=== PATIENT | female | born 1985 | race Caucasian/White ===

== ENCOUNTER → 2016-11-17 | Outpatient (REF) | payer OTHER ==
[~2016-11-17] MED LIST: ASPI325T OR; KEFL500C OR; OMEP20TA7 OR; TRAM100T OR; TRAM50TA2 OR; VICO5TAB OR; [UNRECOGNIZED DRUG - OTHER]; cytomel PO
== END ==
LOC: M LAB REF 19:15
PROVIDERS: ATTEND Physician Assistant
DX: J02.9 Acute pharyngitis, unspecified (principal)

== ENCOUNTER → 2017-03-01 | Outpatient (REF) | payer OTHER | LOC: M LAB REF 16:22 | PROVIDERS: ATTEND Physician Assistant | DX: J02.9 Acute pharyngitis, unspecified (principal) ==

== ENCOUNTER → 2018-03-16 | Outpatient (REF) | payer OTHER | LOC: M LAB REF 19:12 | PROVIDERS: ATTEND Physician Assistant | DX: J06.9 Acute upper respiratory infection, unspecified (principal) ==

== ENCOUNTER → 2018-05-09 | Outpatient (CLI) | payer BC, OTHER ==
--- NOTE | 2018-05-10 02:02 | REP ---
Clinical: Pain with recent fall. Technique: AP and lateral views of the right forearm. Findings: No acute fracture or dislocation. Skeletal structures, joint spaces, and surrounding soft tissues appear normal. Impression: No acute fracture or dislocation. Electronically Signed by Juan C Sweeney MD 05/10/2018 01:54 A
== END ==
LOC: M WUC 17:01
PROVIDERS: ATTEND Physician Assistant
DX: M79.631 Pain in right forearm (principal)

== ENCOUNTER → 2019-11-07 | Outpatient (CLI) | payer BC, OTHER ==
[2019-11-07 14:39] LABS: BASO % 0.6 % (0.0-1.0); EOS # 0.1 10^3/uL (0.0-0.5); EOS % 1.7 % (0.0-3.0); HEMATOCRIT 42.3 % (36.0-47.0); HEMOGLOBIN 14.4 g/dl (12.0-15.5); LYMPH # 2.1 10^3/uL (1.5-5.0); LYMPH % 38.4 % (24.0-44.0); MEAN CORPUSCULAR HEMOGLOBIN 31.9 pg (27.0-33.0); MEAN CORPUSCULAR VOLUME 93.6 fl (80.0-96.0); MONO # 0.7 10^3/uL (0.0-0.8); MONO % 12.2 % (0.0-5.0); NEUTROPHILS # 2.5 10^3/uL (1.5-8.5); NEUTROPHILS % 46.9 % (36.0-66.0); PLATELET COUNT, AUTOMATED 226 10^3/uL (150-450); RED BLOOD COUNT 4.52 10^6/uL (4.00-5.40); WHITE BLOOD COUNT 5.4 10^3/uL (4.0-10.0)
[2019-11-07 16:01] LABS: ALT/SGPT 26 U/L (12-78); BILIRUBIN,TOTAL 0.6 MG/DL (0.2-1.0); BLOOD UREA NITROGEN 13 MG/DL (7-18); CALCIUM LEVEL 9.2 MG/DL (8.5-10.1); CARBON DIOXIDE LEVEL 28 MEQ/L (21-32); CHLORIDE LEVEL 104 MEQ/L (98-107); CHOLESTEROL LEVEL 164 MG/DL (<200); CHOLESTEROL RISK RATIO 1.822 (<5); CREATININE FOR GFR 0.72 MG/DL (0.55-1.30); FREE T4 1.91 NG/DL (0.76-1.46); GLOMERULAR FILTRATION RATE > 60.0 (>60); GLUCOSE, FASTING 76 MG/DL (70-100); HDL CHOLESTEROL 90 MG/DL (>40); LDL CHOLESTEROL 66 MG/DL (<100); NON-HDL-C 74 MG/DL; POTASSIUM SERUM 4.1 MEQ/L (3.5-5.1); SODIUM LEVEL 137 MEQ/L (136-145); THYROID STIMULATING HORMONE < 0.005 uIU/ML (0.358-3.740); TOTAL 25(OH) VITAMIN D 49.8 NG/ML (30.0-100.0); TOTAL PROTEIN 7.3 GM/DL (6.4-8.2); TRIGLYCERIDES LEVEL 41 MG/DL (<150)
== END ==
LOC: M PLALAB 11:28
PROVIDERS: ATTEND Nurse Practitioner Family
DX: I10 Essential (primary) hypertension (principal)

== ENCOUNTER → 2019-12-27 | Outpatient (CLI) | payer BC, OTHER ==
[2019-12-27 11:02] LABS: FREE T4 2.04 NG/DL (0.76-1.46); THYROID STIMULATING HORMONE 0.006 uIU/ML (0.358-3.740)
== END ==
LOC: M PLALAB 09:06
PROVIDERS: ATTEND Nurse Practitioner Family
DX: E89.0 Postprocedural hypothyroidism (principal)

== ENCOUNTER → 2020-07-28 | Outpatient (CLI) | payer OTHER ==
[~2020-07-28] MED LIST changes: +LIDOCAINE 1% MDV 20ML VIAL As Ordered ONE; +TRIAMCINOLONE ACETONIDE SUSP 40 MG/ML VIAL (J3301) As Ordered ONE
--- NOTE | 2020-07-28 17:14 | REP ---
INDICATION: PAIN IN RIGHT SHOULDER. COMPARISON: None. TECHNIQUE: The procedure was performed by Jaci Meade [facility], under the direct supervision of Dr. Shepard. The risks and benefits of the procedure were explained to the patient and an informed consent was obtained both verbally and written. Directly prior to the start of the procedure a formal time-out was completed in the procedure room. FINDINGS: Using ultrasound guidance the right biceps tendon was localized. The skin was prepped and draped in a sterile fashion. A 25 gauge needle was inserted and as it was advanced to the right biceps tendon sheath 2 mL of lidocaine was injected as a local anesthetic. Three mL of a solution containing 2 mL 1% lidocaine 10 mg/ml and 1 mL Kenalog 40 milligrams/milliliter was injected into the tendon sheath under ultrasound guidance. The needle was removed and hemostasis was achieved. The patient tolerated the procedure well and there were no immediate complications. After the appropriate amount of monitored convalescence the patient was discharged from the department. IMPRESSION: 1. Ultrasound-guided right biceps tendon sheath injection. <Electronically signed by Jaci Meade > 07/28/20 1246 <Electronically signed by Jean Carlos Shepard > 07/28/20 1411
== END ==
LOC: M RADPRO 10:37
PROVIDERS: ATTEND Orthopaedic Surgery
DX: M25.511 Pain in right shoulder (principal)
CPT/HCPCS: 20611; J3301

== ENCOUNTER → 2022-03-15 | Outpatient (CLI) | payer BC, OTHER ==
[~2022-03-15] MED LIST changes: -LIDOCAINE 1% MDV 20ML VIAL As Ordered ONE; -TRIAMCINOLONE ACETONIDE SUSP 40 MG/ML VIAL (J3301) As Ordered ONE
[2022-03-15 14:02] LABS: ALBUMIN 3.8 G/DL (3.2-5.2); ALKALINE PHOSPHATASE 74 U/L (46-116); ALT/SGPT 19 U/L (7.0-40); AST/SGOT 24 U/L (<34); BILIRUBIN,TOTAL 0.3 MG/DL (0.3-1.2); BLOOD UREA NITROGEN 10 MG/DL (9-23); CALCIUM LEVEL 8.9 MG/DL (8.5-10.1); CARBON DIOXIDE LEVEL 30 MMOL/L (20-31); CHLORIDE LEVEL 103 MMOL/L (98-107); CHOLESTEROL LEVEL 136 MG/DL (<200); CHOLESTEROL RISK RATIO 2.63 (<5); CREATININE FOR GFR 0.72 MG/DL (0.55-1.30); GLOMERULAR FILTRATION RATE > 60.0 (>60); GLUCOSE, FASTING 85 MG/DL (60-100); HDL CHOLESTEROL 51.7 MG/DL (>40); LDL CHOLESTEROL 69.7 MG/DL (<100); NON-HDL-C 84 MG/DL; POTASSIUM SERUM 4.1 MMOL/L (3.5-5.1); SODIUM LEVEL 140 MMOL/L (136-145); THYROID STIMULATING HORMONE 0.024 uIU/ML (0.55-4.78); TRIGLYCERIDES LEVEL 73 MG/DL (<150)
[2022-03-15 14:04] LABS: FREE T4 1.87 NG/DL (0.89-1.76)
== END ==
LOC: M PLALAB 09:57
PROVIDERS: ATTEND Registered Nurse
DX: I10 Essential (primary) hypertension (principal); E89.0 Postprocedural hypothyroidism

== ENCOUNTER → 2022-04-27 | Outpatient (CLI) | payer BC, OTHER ==
[2022-04-27 14:03] LABS: FREE T4 1.31 NG/DL (0.89-1.76); THYROID STIMULATING HORMONE 0.113 uIU/ML (0.55-4.78)
== END ==
LOC: M PLALAB 09:02
PROVIDERS: ATTEND Registered Nurse
DX: E89.0 Postprocedural hypothyroidism (principal)

== ENCOUNTER → 2022-07-11 | Outpatient (CLI) | payer BC, OTHER ==
[2022-07-11 17:47] LABS: FREE T4 1.36 NG/DL (0.89-1.76)
[2022-07-11 17:48] LABS: THYROID STIMULATING HORMONE 1.199 uIU/ML (0.55-4.78)
[2022-07-13 09:11] LABS: THRYOGLOBULIN ANTIBODIES (ATA) < 1.0 IU/mL (0.0-0.9); THYROGLOBULIN QUANTITATIVE < 0.1 ng/mL (1.5-38.5)
== END ==
LOC: M PLALAB 15:16
PROVIDERS: ATTEND Nurse Practitioner Family
DX: E89.0 Postprocedural hypothyroidism (principal); Z85.850 Personal history of malignant neoplasm of thyroid

== ENCOUNTER → 2023-05-31 | Outpatient (CLI) | payer BC, OTHER ==
[2023-05-31 14:53] LABS: BASO % 0.7 % (0.0-1.0); EOS # 0.1 10^3/uL (0.0-0.5); EOS % 2.3 % (0.0-3.0); HEMATOCRIT 38.4 % (36.0-47.0); HEMOGLOBIN 12.8 g/dl (12.0-15.5); LYMPH # 1.7 10^3/uL (1.5-5.0); LYMPH % 38.5 % (24.0-44.0); MEAN CORPUSCULAR HEMOGLOBIN 31.8 pg (27.0-33.0); MEAN CORPUSCULAR HGB CONC 33.3 g/dl (32.0-36.5); MEAN CORPUSCULAR VOLUME 95.5 fl (80.0-96.0); MONO # 0.4 10^3/uL (0.0-0.8); NEUTROPHILS # 2.1 10^3/uL (1.5-8.5); PLATELET COUNT, AUTOMATED 252 10^3/uL (150-450); RED BLOOD COUNT 4.02 10^6/uL (4.00-5.40); WHITE BLOOD COUNT 4.4 10^3/uL (4.0-10.0)
[2023-05-31 15:23] LABS: ALBUMIN 3.8 G/DL (3.2-5.2); ALKALINE PHOSPHATASE 71 U/L (46-116); ALT/SGPT 34 U/L (7.0-40); AST/SGOT 31 U/L (<34); BILIRUBIN,TOTAL 0.4 MG/DL (0.3-1.2); BLOOD UREA NITROGEN 10 MG/DL (9-23); CALCIUM LEVEL 7.8 MG/DL (8.5-10.1); CARBON DIOXIDE LEVEL 30 MMOL/L (20-31); CHLORIDE LEVEL 104 MMOL/L (98-107); CHOLESTEROL LEVEL 183 MG/DL (<200); CHOLESTEROL RISK RATIO 1.93 (<5); CREATININE FOR GFR 0.69 MG/DL (0.55-1.30); FERRITIN 21.9 NG/ML (7.3-270.7); FOLATE 12.2 NG/ML (>5.4); FREE T3 2.9 PG/ML (2.3-4.2); GLOMERULAR FILTRATION RATE > 60.0 (>60); GLUCOSE, FASTING 76 MG/DL (60-100); HDL CHOLESTEROL 94.5 MG/DL (>40); IRON (FE) 75 UG/DL (50-170); LDL CHOLESTEROL 76.9 MG/DL (<100); MAGNESIUM LEVEL 1.8 MG/DL (1.8-2.4); NON-HDL-C 88.5 MG/DL; PERCENT SATURATION 19.4 % (13.2-45.0); SODIUM LEVEL 139 MMOL/L (136-145); THYROID STIMULATING HORMONE 5.223 uIU/ML (0.55-4.78); TOTAL 25(OH) VITAMIN D 58.6 NG/ML (20.0-100.0); TOTAL IRON BINDING CAPACITY 386 UG/DL (250-425); TOTAL PROTEIN 6.6 G/DL (5.7-8.2); TRIGLYCERIDES LEVEL 58 MG/DL (<150)
[2023-05-31 15:24] LABS: VITAMIN B12 LEVEL 347 PG/ML (211-911)
== END ==
LOC: M PLALAB 10:53
PROVIDERS: ATTEND Registered Nurse
DX: I10 Essential (primary) hypertension (principal); E89.0 Postprocedural hypothyroidism; L65.9 Nonscarring hair loss, unspecified

== ENCOUNTER → 2023-07-04 | Outpatient (REF) | payer BC, OTHER | LOC: M LAB REF 17:27 | PROVIDERS: ATTEND Registered Nurse | DX: Z01.419 Encounter for gynecological examination (general) (routine) without abnormal findings (principal) | CPT/HCPCS: 87624; G0123 ==

== ENCOUNTER → 2024-09-30 | Outpatient (CLI) | payer BC ==
[~2024-09-30] MED LIST changes: +FLUTISP; +LEVO150T7 PO; +LEVOTAB10 PO; +LOSA50TA28 PO; +OMEP40CA5 PO; +TRIA37.577 PO
[2024-09-30 13:56] LABS: BASO # 0.0 10^3/uL (0.0-0.2); BASO % 0.4 % (0.0-1.0); EOS # 0.1 10^3/uL (0.0-0.5); EOS % 0.9 % (0.0-3.0); LYMPH # 1.6 10^3/uL (1.5-5.0); LYMPH % 23.1 % (24.0-44.0); MONO # 0.6 10^3/uL (0.0-0.8); MONO % 9.1 % (2.0-8.0); NEUTROPHILS # 4.6 10^3/uL (1.5-8.5); NEUTROPHILS % 66.1 % (36.0-66.0); PLATELET COUNT, AUTOMATED 266 10^3/uL (150-450)
[2024-09-30 14:17] LABS: ALT/SGPT 19 U/L (7.0-40); AST/SGOT 22 U/L (<34); CALCIUM LEVEL 9.2 MG/DL (8.5-10.1); CARBON DIOXIDE LEVEL 28 MMOL/L (20-31); CHLORIDE LEVEL 104 MMOL/L (98-107); CREATININE FOR GFR 0.66 MG/DL (0.55-1.30); FREE T4 1.01 NG/DL (0.89-1.76); GLOMERULAR FILTRATION RATE > 90.0 (>60); POTASSIUM SERUM 4.5 MMOL/L (3.5-5.1); SODIUM LEVEL 141 MMOL/L (136-145); THYROID PEROXIDASE ANTIBODY < 28.0 U/ML (<60.0)
== END ==
LOC: M PLALAB 10:24
PROVIDERS: ATTEND Registered Nurse
DX: E03.9 Hypothyroidism, unspecified (principal)

== ENCOUNTER → 2024-10-29 | Outpatient (CLI) | payer BC | LOC: M RAD 10:41 | PROVIDERS: ATTEND Physician Assistant | DX: M95.2 Other acquired deformity of head (principal) ==

== ENCOUNTER → 2024-11-21 | Outpatient (CLI) | payer BC ==
[~2024-11-21] MED LIST changes: +ACET-910 PO; +FERR325T81 PO; +LEVE750T5 PO; +OMEG350C PO; +SYNT175T2 PO
[2024-11-21 13:10] LABS: APPEARANCE, URINE CLEAR (CLEAR); BACTERIA, URINE AUTO NEGATIVE (NEGATIVE); BASO # 0.1 10^3/uL (0.0-0.2); BASO % 0.5 % (0.0-1.0); BILIRUBIN, URINE AUTO NEGATIVE (NEGATIVE); BLOOD, URINE BLOOD NEGATIVE (NEGATIVE); EOS # 0.3 10^3/uL (0.0-0.5); EOS % 2.7 % (0.0-3.0); GLUCOSE, URINE (UA) AUTO NEGATIVE (NEGATIVE); KETONE, URINE AUTO NEGATIVE (NEGATIVE); LEUKOCYTE ESTERASE, URINE AUTO NEGATIVE (NEGATIVE); LYMPH # 1.7 10^3/uL (1.5-5.0); LYMPH % 15.6 % (24.0-44.0); MONO # 0.7 10^3/uL (0.0-0.8); MONO % 6.4 % (2.0-8.0); NEUTROPHILS # 8.1 10^3/uL (1.5-8.5); NEUTROPHILS % 74.5 % (36.0-66.0); NITRITE, URINE AUTO NEGATIVE (NEGATIVE); PLATELET COUNT, AUTOMATED 286 10^3/uL (150-450); PROTEIN, URINE AUTO NEGATIVE (NEGATIVE); RBC, URINE AUTO 0 /HPF (0-3); SPECIFIC GRAVITY URINE AUTO 1.002 (1.002-1.035); SQUAMOUS EPITHELIAL CELL UR AU 1 /HPF (0-6); UROBILINOGEN, URINE AUTO 0.2 mg/dL (0.0-2.0); WBC, URINE AUTO 0 /HPF (0-3)
[2024-11-21 13:13] LABS: INR 0.93
[2024-11-21 13:15] LABS: CALCIUM LEVEL 9.0 MG/DL (8.5-10.1); CARBON DIOXIDE LEVEL 28 MMOL/L (20-31); CHLORIDE LEVEL 107 MMOL/L (98-107); CREATININE FOR GFR 0.61 MG/DL (0.55-1.30); GLOMERULAR FILTRATION RATE > 90.0 (>60); POTASSIUM SERUM 4.4 MMOL/L (3.5-5.1); SODIUM LEVEL 143 MMOL/L (136-145)
== END ==
LOC: M PLALAB 09:55
PROVIDERS: ATTEND Physician Assistant
DX: M95.2 Other acquired deformity of head (principal)

== ENCOUNTER → 2024-11-28 | Outpatient (CLI) | payer BC ==
[2024-11-28 13:22] LABS: PLATELET COUNT, AUTOMATED 294 10^3/uL (150-450)
== END ==
LOC: M PLALAB 10:47
PROVIDERS: ATTEND Neurological Surgery
DX: M95.2 Other acquired deformity of head (principal)

== ENCOUNTER → 2024-12-03 | Day surgery (SDC) | payer BC ==
[~2024-12-03] VITALS: Ht 170.2 cm; Wt 68.5 kg
[~2024-12-03] MED LIST changes: +ACETAMINOPHEN 1000MG/100ML IV BAG As Ordered ONE; +GLYCOPYRROLATE INJ 0.2 MG/ML 2 ML VIAL As Ordered ONE; +HOME MED LIST COMPLETE! XX SCH; +LIDOCAINE 2% 100 MG/5 ML SDV (FOR ANES.) As Ordered ONE; +LR 1,000 ML IV SCH; +MIDAZOLAM INJ 2 MG/2 ML VIAL As Ordered ONE; +MIDAZOLAM INJ 2 MG/2 ML VIAL IV PRN; +ONDANSETRON 4MG 2ML VIAL As Ordered ONE; +ROCURONIUM BROMIDE 50MG/5ML VIAL As Ordered ONE; +ROPIvacaine 0.5% 30ML VIAL PN ONE; +SUGAMMADEX SODIUM 200 MG/2 ML VIAL As Ordered ONE; +ceFAZolin SOD 2 GM IV ONCE IV ONE; +dexAMETHasone 10 MG/1 ML VIAL PRES.FREE PN ONE; +dexAMETHasone 4 MG/ML 1 ML VIAL As Ordered ONE
[2024-12-03 06:20] VITALS: BP 112/78; TEMP 98.5; O2SAT 100
[2024-12-03 07:02] LABS: AMPHETAMINES LEVEL URINE NEGATIVE (NEGATIVE); BARBITURATES URINE NEGATIVE (NEGATIVE); BENZODIAZEPINES URINE NEGATIVE (NEGATIVE); CANNABINOIDS URINE NEGATIVE (NEGATIVE); METHADONE URINE NEGATIVE (NEGATIVE); OPIATES URINE NEGATIVE (NEGATIVE); PHENCYCLIDINE URINE NEGATIVE (NEGATIVE)
[2024-12-03 07:13] LABS: COCAINE METABOLITE URINE POSITIVE (NEGATIVE)
[2024-12-03 07:36] LABS: HCG, SERUM QUALITATIVE NEGATIVE (NEGATIVE)
[2024-12-03 08:19] LABS: AMPHETAMINES LEVEL URINE NEGATIVE (NEGATIVE); BARBITURATES URINE NEGATIVE (NEGATIVE); BENZODIAZEPINES URINE NEGATIVE (NEGATIVE); CANNABINOIDS URINE NEGATIVE (NEGATIVE); METHADONE URINE NEGATIVE (NEGATIVE); OPIATES URINE NEGATIVE (NEGATIVE); PHENCYCLIDINE URINE NEGATIVE (NEGATIVE)
[2024-12-03 08:23] LABS: COCAINE METABOLITE URINE POSITIVE (NEGATIVE)
== END | disposition home or self-care (01) ==
LOC: M SDC 06:09
PROVIDERS: ATTEND Neurological Surgery
DX: M95.2 Other acquired deformity of head (principal); Z53.09 Procedure and treatment not carried out because of other contraindication; F14.10 Cocaine abuse, uncomplicated

== ENCOUNTER 2024-12-10 09:47 | Inpatient (IN) | payer BC ==
[~2024-12-10] VITALS: Ht 170.2 cm; Wt 71.6 kg
[~2024-12-10 09:47] MED LIST changes: -ACETAMINOPHEN 1000MG/100ML IV BAG As Ordered ONE; -GLYCOPYRROLATE INJ 0.2 MG/ML 2 ML VIAL As Ordered ONE; -HOME MED LIST COMPLETE! XX SCH; -LIDOCAINE 2% 100 MG/5 ML SDV (FOR ANES.) As Ordered ONE; -LR 1,000 ML IV SCH; -MIDAZOLAM INJ 2 MG/2 ML VIAL As Ordered ONE; -MIDAZOLAM INJ 2 MG/2 ML VIAL IV PRN; -ONDANSETRON 4MG 2ML VIAL As Ordered ONE; -ROCURONIUM BROMIDE 50MG/5ML VIAL As Ordered ONE; -ROPIvacaine 0.5% 30ML VIAL PN ONE; -SUGAMMADEX SODIUM 200 MG/2 ML VIAL As Ordered ONE; -ceFAZolin SOD 2 GM IV ONCE IV ONE; -dexAMETHasone 10 MG/1 ML VIAL PRES.FREE PN ONE; -dexAMETHasone 4 MG/ML 1 ML VIAL As Ordered ONE
[2024-12-10] MEDS: LR 1,000 ML IV SCH ×2 (10:15→16:45)
[2024-12-10 10:39] LABS: AMPHETAMINES LEVEL URINE NEGATIVE (NEGATIVE)
[2024-12-10 10:40] LABS: BARBITURATES URINE NEGATIVE (NEGATIVE); BENZODIAZEPINES URINE NEGATIVE (NEGATIVE); CANNABINOIDS URINE NEGATIVE (NEGATIVE); COCAINE METABOLITE URINE NEGATIVE (NEGATIVE); METHADONE URINE NEGATIVE (NEGATIVE); OPIATES URINE NEGATIVE (NEGATIVE); PHENCYCLIDINE URINE NEGATIVE (NEGATIVE)
[2024-12-10 10:45] LABS: HCG, SERUM QUALITATIVE NEGATIVE (NEGATIVE)
[2024-12-10] MEDS ORDERED: LIDOCAINE 2% 100 MG/5 ML SDV (FOR ANES.) As Ordered ONE (13:09)
[2024-12-10] MEDS ORDERED: REMIFENTANIL 1MG VIAL As Ordered ONE (13:09)
[2024-12-10] MEDS ORDERED: ROCURONIUM BROMIDE 50MG/5ML VIAL As Ordered ONE (13:09)
[2024-12-10] MEDS ORDERED: MIDAZOLAM INJ 2 MG/2 ML VIAL As Ordered ONE (13:10)
[2024-12-10] MEDS ORDERED: PHENYLephrine 500MCG 5ML (100MCG/ML) SYRINGE As Ordered ONE (13:47)
[2024-12-10] MEDS: ceFAZolin SOD 2 GM IV ONCE IV ONE (13:47)
[2024-12-10] MEDS: MANNITOL 25% 12.5 GM/50 ML VIAL IV ONE (14:35)
[2024-12-10] MEDS: MANNITOL 25% 12.5 GM/50 ML VIAL As Ordered ONE (14:38)
[2024-12-10] MEDS ORDERED: ACETAMINOPHEN 1000MG/100ML IV BAG As Ordered ONE (14:43)
[2024-12-10] MEDS ORDERED: ONDANSETRON 4MG 2ML VIAL As Ordered ONE (14:44)
[2024-12-10] MEDS ORDERED: SUGAMMADEX SODIUM 200 MG/2 ML VIAL As Ordered ONE (14:44)
[2024-12-10] MEDS ORDERED: dexAMETHasone 4 MG/ML 1 ML VIAL As Ordered ONE (14:44)
[2024-12-10] MEDS ORDERED: HYDROmorphone HCL 2 MG/ML 1 ML VIAL As Ordered ONE (14:45)
[2024-12-10] MEDS: levETIRAcetam INJection 1,000 MG in IV 1 EA IV ONE (14:59)
[2024-12-10] MEDS ORDERED: ONDANSETRON 4MG 2ML VIAL IV PRN ×2 (16:45→17:10)
[2024-12-10] MEDS ORDERED: HYDROMORPHONE HCL 0.5 MG/0.5 ML SYRINGE IV PRN (16:45)
[2024-12-10] MEDS ORDERED: METOPROLOL 5 MG/5 ML VIAL IV PRN (17:10)
[2024-12-10] MEDS ORDERED: CHLORASEPTIC SPRAY MT PRN (17:10)
[2024-12-10] MEDS ORDERED: hydrALAZINE 20 MG/ML 1 ML VIAL IV PRN (17:10)
[2024-12-10 18:10] VITALS: BP 136/87; TEMP 97.8; O2SAT 96
[2024-12-10] MEDS: NS (Normal Saline) 0.9% 1,000 ML IV ONE (18:19)
[2024-12-10] MEDS: ACETAMINOPHEN 325 MG TAB PO SCH (18:25)
[2024-12-10 19:00] VITALS: BP 124/75; O2SAT 97
[2024-12-10 19:10] LABS: PLATELET COUNT, AUTOMATED 208 10^3/uL (150-450)
[2024-12-10 19:19] LABS: CALCIUM LEVEL 8.4 MG/DL (8.5-10.1); CARBON DIOXIDE LEVEL 25 MMOL/L (20-31); CHLORIDE LEVEL 106 MMOL/L (98-107); CREATININE FOR GFR 0.61 MG/DL (0.55-1.30); GLOMERULAR FILTRATION RATE > 90.0 (>60); POTASSIUM SERUM 4.0 MMOL/L (3.5-5.1); SODIUM LEVEL 140 MMOL/L (136-145)
[2024-12-10] MEDS ORDERED: HOME MED LIST COMPLETE! XX SCH (19:45)
[2024-12-10 20:00] VITALS: BP 120/70; TEMP 98.4; O2SAT 98
[2024-12-10] MEDS: SENNA 8.6 MG TAB PO SCH (20:27)
[2024-12-10] MEDS: DOCUSATE SODIUM 100 MG CAPSULE PO SCH (20:27)
[2024-12-10 21:00] VITALS: BP 116/73; O2SAT 98
[2024-12-10 22:00] VITALS: BP 111/68; O2SAT 96
[2024-12-10] MEDS: ceFAZolin SODIUM 2 GM in DEXTROSE 5% (D5W) ADV/MINI-BAG 50 ML IV SCH (23:00)
[2024-12-11] VITALS (9 sets, daily range): BP systolic 95–115; BP diastolic 59–81; TEMP 97.5–98.7; O2SAT 96–100
[2024-12-11 05:33] LABS: PLATELET COUNT, AUTOMATED 214 10^3/uL (150-450)
[2024-12-11 06:00] LABS: CALCIUM LEVEL 8.4 MG/DL (8.5-10.1); CARBON DIOXIDE LEVEL 24 MMOL/L (20-31); CHLORIDE LEVEL 102 MMOL/L (98-107); CREATININE FOR GFR 0.53 MG/DL (0.55-1.30); GLOMERULAR FILTRATION RATE > 90.0 (>60); POTASSIUM SERUM 4.3 MMOL/L (3.5-5.1); SODIUM LEVEL 135 MMOL/L (136-145)
[2024-12-11] MEDS: HEPARIN SOD 5000 UNITS/ML 1 ML VIAL/SYRINGE SQ SCH (21:19)
[2024-12-12] VITALS (12 sets, daily range): BP systolic 104–118; BP diastolic 57–79; TEMP 97.1–98.6; O2SAT 96–100
[2024-12-12 04:48] LABS: PLATELET COUNT, AUTOMATED 193 10^3/uL (150-450)
[2024-12-12 05:23] LABS: CALCIUM LEVEL 8.0 MG/DL (8.5-10.1); CARBON DIOXIDE LEVEL 26 MMOL/L (20-31); CHLORIDE LEVEL 107 MMOL/L (98-107); CREATININE FOR GFR 0.62 MG/DL (0.55-1.30); GLOMERULAR FILTRATION RATE > 90.0 (>60); POTASSIUM SERUM 3.7 MMOL/L (3.5-5.1); SODIUM LEVEL 141 MMOL/L (136-145)
[2024-12-13] VITALS: BP 111/71; TEMP 98.3; O2SAT 100
[2024-12-13 04:00] VITALS: BP 106/71; TEMP 97.3; O2SAT 100
[2024-12-13 04:47] LABS: BASO # 0.0 10^3/uL (0.0-0.2); BASO % 0.6 % (0.0-1.0); EOS # 0.5 10^3/uL (0.0-0.5); EOS % 6.4 % (0.0-3.0); LYMPH # 2.3 10^3/uL (1.5-5.0); LYMPH % 33.2 % (24.0-44.0); MONO # 0.6 10^3/uL (0.0-0.8); MONO % 9.1 % (2.0-8.0); NEUTROPHILS # 3.6 10^3/uL (1.5-8.5); NEUTROPHILS % 50.4 % (36.0-66.0); PLATELET COUNT, AUTOMATED 208 10^3/uL (150-450)
[2024-12-13 05:11] LABS: CALCIUM LEVEL 8.6 MG/DL (8.5-10.1); CARBON DIOXIDE LEVEL 27 MMOL/L (20-31); CHLORIDE LEVEL 105 MMOL/L (98-107); CREATININE FOR GFR 0.56 MG/DL (0.55-1.30); GLOMERULAR FILTRATION RATE > 90.0 (>60); POTASSIUM SERUM 3.9 MMOL/L (3.5-5.1); SODIUM LEVEL 139 MMOL/L (136-145)
[2024-12-13 08:06] VITALS: BP 124/73; TEMP 97.1; O2SAT 98
[2024-12-13] MEDS ORDERED: COLA100C5 PO (09:56)
[2024-12-13] MEDS ORDERED: BACI50OI TOP (09:56)
[2024-12-13] MEDS ORDERED: SENN18TA PO (09:56)
[2024-12-13] MEDS ORDERED: OXYC-517 PO (09:56)
== END 2024-12-13 11:05 | disposition home or self-care (01) | DRG 89 ==
LOC: M SDC 09:47 → M RR INP 17:07 → M ICU 18:10
PROVIDERS: ADMIT Internal Medicine Pulmonary Disease; ATTEND Internal Medicine Critical Care Medicine
PROC: 0NU00JZ Supplement Skull with Synthetic Substitute, Open Approach (ICD-10-PCS; principal; 2024-12-10 11:15)
DX: M95.2 Other acquired deformity of head (principal); E07.9 Disorder of thyroid, unspecified; H53.149 Visual discomfort, unspecified; Z87.820 Personal history of traumatic brain injury; Z91.030 Bee allergy status; Z79.899 Other long term (current) drug therapy; Z79.890 Hormone replacement therapy

== ENCOUNTER → 2025-02-03 | Outpatient (CLI) | payer BC ==
[~2025-02-03] MED LIST changes: +BACI50OI TOP; +COLA100C5 PO; +OXYC-517 PO; +SENN18TA PO
== END ==
LOC: M RAD 07:12
PROVIDERS: ATTEND Physician Assistant
DX: S06.5X0D Traumatic subdural hemorrhage without loss of consciousness, subsequent encounter (principal); W18.30XD Fall on same level, unspecified, subsequent encounter